=== PATIENT | male | born 1995 | race Caucasian/White ===

== ENCOUNTER 2018-08-13 18:10 | Emergency (ER) | payer OTHER ==
[~2018-08-13] VITALS: Ht 182.9 cm; Wt 114.4 kg
[2018-08-13 18:40] VITALS: BP 146/85
--- NOTE | 2018-08-13 18:46 | NUR ---
PATIENT AMBULATED TO BED 2 AT THIS TIME.
--- NOTE | 2018-08-13 18:52 | NUR ---
23/M BIB SELF, C/O OR RLQ PAIN THAT RADIATED TO SUPRAPELVIC REGION DOWN TO GROIN. PAIN INTERMITTENT DULL 8/10 PAIN, PATIENT REPORTS ABDOMEN TENDER UPON PALPATION, AND OCCASIONAL [place]. PATIENT STATES THAT HE LEFTED HIS ON FRIDAY FELT A SHARP PAIN, PAIN DISAPPEARED SOON AFTER. PAIN RETURNED LAST NIGHT AROUND 10PM AND HAS WORSENED. DENIES PAIN UPON URINATION, FEVERS, OR DIARRHEA. AOX4, STEADY GAIT, SAFETY PRECAUTIONS IN PLACE.
[2018-08-13] MEDS ORDERED: NACL 0.9% 1,000 ML IV ONE (19:16)
--- NOTE | 2018-08-13 19:16 | NUR ---
Pt report given to CLARENCE NEWELL. Transfer of care at this time.
--- NOTE | 2018-08-13 19:16 | NUR ---
REPORT RECIEVED FROM LATANYA NEWELL.
[2018-08-13] MEDS ORDERED: ONDANSETRON 4 MG/2 ML VIAL IVP ONE (19:20)
[2018-08-13] MEDS ORDERED: KETOROLAC 30 MG/ML VIAL IVP ONE (19:20)
--- NOTE | 2018-08-13 19:20 | NUR ---
PT REFUSED IV AND IV MEDICATIONS. DR NEWMAN INFORMED. VSS. CONTINUE TO MONITOR.
--- NOTE | 2018-08-13 19:26 | NUR ---
PT TO CT VIA WHEELCHAIR BY TECH.
--- NOTE | 2018-08-13 19:31 | NUR ---
PT TO CT. ESCORTED BY TECH VIA WHEEL CHAIR.
[2018-08-13 21:11] VITALS: BP 134/88
--- NOTE | 2018-08-13 21:11 | NUR ---
Patient discharged with v/s stable. Written and verbal after care instructions given and explained. Patient alert, oriented and verbalized understanding of instructions. Ambulatory with steady gait. All questions addressed prior to discharge. ID band removed. Patient advised to follow up with PMD. Rx of Zofran and Motrin given. Patient educated on indication of medication including possible reaction and side effects. Opportunity to ask questions provided and answered.
== END 2018-08-13 21:11 | disposition home or self-care (01) ==
LOC: MED 18:10
DX: S76.019A Strain of muscle, fascia and tendon of unspecified hip, initial encounter (principal); S39.012A Strain of muscle, fascia and tendon of lower back, initial encounter; F41.9 Anxiety disorder, unspecified; X58.XXXA Exposure to other specified factors, initial encounter; Y93.89 Activity, other specified; Y92.89 Other specified places as the place of occurrence of the external cause; Y99.8 Other external cause status
CPT/HCPCS: 81002; 99284

== ENCOUNTER 2018-08-17 22:42 | Emergency (ER) | payer OTHER ==
[~2018-08-17] VITALS: Ht 182.9 cm; Wt 114.9 kg
[2018-08-17 22:53] VITALS: BP 149/88
--- NOTE | 2018-08-17 22:55 | NUR ---
PT RETURNED TO LOBBY IN STABLE CONDITION
--- NOTE | 2018-08-18 00:45 | NUR ---
PT WAITING IN THE LOBBY IN STABLE CONDITION
--- NOTE | 2018-08-18 00:51 | NUR ---
PT TO ER BED 11
--- NOTE | 2018-08-18 00:53 | NUR ---
PT CAME IN TO ED WITH C/O UPPER ABDOMINAL PAIN AND ANXIETY. PT STATES HE TOOK TWO EXCEDRIN PILLS FOR HIS ABDOMINAL PAIN AND THEN DRANK A CUP OF COFFEE. PT STATES HE FELT PALPITATIONS AND HE STARTED GETTING ANXIETY. PT DENIES N/V/D AND STATES HE FEELS SOME CONSTIPATION. PT ALSO REPORTS DISCOMFORT WHILE SITTING BECAUSE HE STRAINED A LIGAMENT. DENIES ANY OTHER SYMPTOMS. NO SIGNS OF DISTRESS NOTED. VSS.
[2018-08-18] MEDS ORDERED: FAMOTIDINE 20 MG TAB PO ONE (02:30)
[2018-08-18] MEDS ORDERED: ALUMINUM HYD/MAG/SIMETHICONE 30 ML UDC PO ONE (02:30)
[2018-08-18] MEDS ORDERED: LIDOCAINE VISCOUS 2% 20 ML UDC PO ONE (02:30)
[2018-08-18] MEDS ORDERED: ONDANSETRON 4 MG/2 ML VIAL IVP ONE (02:30)
[2018-08-18] MEDS ORDERED: NACL 0.9% 1,000 ML IV SCH (02:30)
[2018-08-18 02:54] LABS: BASOPHILS # (AUTO) 0.1 K/uL (0.00-0.22); BASOPHILS % (AUTO) 0.7 % (0.0-2.0); EOSINOPHILS # (AUTO) 0.2 K/uL (0-0.4); EOSINOPHILS % (AUTO) 2.5 % (0.0-4.0); HEMATOCRIT 49.4 % (36-52); HEMOGLOBIN 16.5 g/dL (12.0-18.0); LYMPHOCYTES # (AUTO) 2.7 K/uL (2.0-11.5); LYMPHOCYTES % (AUTO) 28.8 % (20.5-51.1); MEAN CORPUSCULAR HEMOGLOBIN 30 pg (27-31); MEAN CORPUSCULAR HGB CONC 33 g/dL (33-37); MEAN CORPUSCULAR VOLUME 88.3 fL (80-94); MONOCYTES # (AUTO) 0.5 K/uL (0.8-1.0); MONOCYTES % (AUTO) 5.6 % (1.7-9.3); NEUTROPHILS # (AUTO) 5.9 K/uL (1.8-7.7); NEUTROPHILS % (AUTO) 62.4 % (42.2-75.2); PLATELET COUNT (AUTO) 324 K/uL (140-450); RED BLOOD CELL COUNT(AUTO) 5.59 MIL/uL (4.20-6.10); RED CELL DISTRIBUTION WIDTH 13.1 % (11.6-13.7); WHITE BLOOD COUNT (AUTO) 9.5 K/uL (4.8-10.8)
--- NOTE | 2018-08-18 03:00 | NUR ---
PT REFUSED IV START
[2018-08-18 03:09] LABS: ALBUMIN 4.6 g/dL (3.4-5.0); ANION GAP 12.1 (8-16); CARBON DIOXIDE 31.4 mmol/L (21-32); CREATININE 1.1 mg/dL (0.7-1.3); POTASSIUM 4.5 mmol/L (3.5-5.1); TOTAL BILIRUBIN 0.5 mg/dL (0.0-1.0)
--- NOTE | 2018-08-18 03:09 | NUR ---
Dr. Ramírez evaluating patient at bedside.
--- NOTE | 2018-08-18 03:41 | NUR ---
PT TAKEN TO CT
[2018-08-18 05:17] VITALS: BP 128/75
--- NOTE | 2018-08-18 05:17 | NUR ---
Patient discharged with v/s stable. Written and verbal after care instructions given and explained. Patient alert, oriented and verbalized understanding of instructions. Ambulatory with steady gait. All questions addressed prior to discharge. ID band removed. Patient advised to follow up with PMD. Rx of Omeprazole and Pepcid given. Patient educated on indication of medication including possible reaction and side effects. Opportunity to ask questions provided and answered.
== END 2018-08-18 05:17 | disposition home or self-care (01) ==
LOC: MED 22:42
DX: R10.13 Epigastric pain (principal); T43.615A Adverse effect of caffeine, initial encounter; F41.9 Anxiety disorder, unspecified; Y92.89 Other specified places as the place of occurrence of the external cause
CPT/HCPCS: 36415; 80053; 83690; 85025; 99284

== ENCOUNTER 2021-07-08 21:30 | Emergency (ER) | payer OTHER ==
[~2021-07-08] VITALS: Ht 182.9 cm; Wt 115.7 kg
[2021-07-08 21:42] VITALS: BP 137/116
--- NOTE | 2021-07-08 21:47 | NUR ---
PATIENT TO LOBBY AMUBLATORY
--- NOTE | 2021-07-08 23:04 | NUR ---
PATIENT AMBULATED TO BED 8
[2021-07-08] MEDS ORDERED: ATA25 PO (23:25)
[2021-07-08] MEDS ORDERED: LORazepam 1 MG TAB PO ONE (23:25)
[2021-07-08 23:38] VITALS: BP 137/116
--- NOTE | 2021-07-08 23:38 | NUR ---
Patient discharged with v/s stable. Written and verbal after care instructions given and explained. Patient verbalized understanding. Ambulatory with steady gait. All questions addressed prior to discharge. Advised to follow up with PMD.
== END 2021-07-08 23:38 | disposition home or self-care (01) ==
LOC: MED 21:30
DX: F41.9 Anxiety disorder, unspecified (principal); Z79.899 Other long term (current) drug therapy
CPT/HCPCS: 99283

== ENCOUNTER 2021-07-23 12:47 | Emergency (ER) | payer OTHER ==
[~2021-07-23] VITALS: Ht 182.9 cm; Wt 112.0 kg
[~2021-07-23 12:47] MED LIST: ATA25 PO
--- NOTE | 2021-07-23 13:21 | NUR ---
pt name called in lobby and outside, no response
[2021-07-23 13:47] VITALS: BP 155/91
--- NOTE | 2021-07-23 14:50 | NUR ---
PT CALLED IN ER LOBBY FOR EKG, NO ANSWER.
--- NOTE | 2021-07-23 14:57 | NUR ---
PT CALLED IN ER LOBBY, NO ANSWER.
--- NOTE | 2021-07-23 15:06 | NUR ---
Called patient, no show in er lobby.
--- NOTE | 2021-07-23 15:17 | NUR ---
PATIENT LEFT WITHOUT BEING SEEN BY DR. MANSFIELD AT 1321. NO FURTHER CARE PROVIDED FOR PATIENT.
== END 2021-07-23 15:17 | disposition left against medical advice (07) ==
LOC: MED 12:47
DX: R07.9 Chest pain, unspecified (principal); Z53.21 Procedure and treatment not carried out due to patient leaving prior to being seen by health care provider